=== PATIENT | male | born 1965 | race Hispanic/Latino ===

== ENCOUNTER 2023-01-19 21:31 | Emergency (ER) | payer OTHER ==
[2023-01-19] MEDS ORDERED: CEFAZOLIN SODIUM 1 GM/VIAL ONE (22:03)
[2023-01-19] MEDS ORDERED: KETOROLAC 30 MG/ML INJ ONE (22:04)
[2023-01-19] MEDS ORDERED: MORPHINE 4 MG/ML SYR ONE (22:04)
[2023-01-19] MEDS ORDERED: LIDOCAINE 1% W/EPI 1:100,000 30 ML VIAL ONE (22:04)
[2023-01-19] MEDS ORDERED: NA CHLORIDE 0.9% 100 ML ONE (22:04)
[2023-01-19] MEDS ORDERED: ONDANSETRON 4 MG/2 ML VIAL ONE (22:04)
[2023-01-19] MEDS ORDERED: NA CHLORIDE 0.9% 1,000 ML ONE (22:04)
[2023-01-19] MEDS ORDERED: TDAP (DIPHTH,PERTUSS(ACELL),TET VAC) 0.5 ML VIAL IMVAC ONE (22:04)
[2023-01-19 22:22] LABS: Absolute Lymphocytes (CBC) 1.3 K/uL (0.7-4.9); Hematocrit 49.1 % (39.6-49.0); Lymphocytes % 7.7 % (15.3-44.8); MPV 9.7 fL (7.6-11.3); RBC Red Blood Cell Count 5.52 M/uL (4.33-5.43)
[2023-01-19 22:39] LABS: Albumin 3.8 g/dL (3.4-5.0); Bilirubin Direct 0.2 mg/dL (0-0.2); Bilirubin Total 0.8 mg/dL (0.2-1.0); Potassium 3.5 mmol/L (3.5-5.1); Protein, Total 8.5 g/dL (6.4-8.2)
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
== END 2023-01-20 01:45 | disposition home or self-care (01) ==
LOC: ER 21:31
PROC: 0HQEXZZ Repair Left Lower Arm Skin, External Approach (ICD-10-PCS; principal; 2023-01-20)
DX: S51.812A Laceration without foreign body of left forearm, initial encounter (principal); Z23 Encounter for immunization; S61.412A Laceration without foreign body of left hand, initial encounter; S61.211A Laceration without foreign body of left index finger without damage to nail, initial encounter; S61.512A Laceration without foreign body of left wrist, initial encounter; S40.812A Abrasion of left upper arm, initial encounter; S50.812A Abrasion of left forearm, initial encounter; S60.812A Abrasion of left wrist, initial encounter; I12.9 Hypertensive chronic kidney disease with stage 1 through stage 4 chronic kidney disease, or unspecified chronic kidney disease; N18.9 Chronic kidney disease, unspecified; F17.210 Nicotine dependence, cigarettes, uncomplicated
CPT/HCPCS: 85025; 80048; 36415; 86900; 86850; 82565; 86901; 80076; 83690; 70450; 72125; 71260; 74177; 71045; 72170; 73130; 73090; 73060; 73110; 90471; 96375; 96374; 99284; 12001; Q9967; J2405; J7030; J0690; G0480